=== PATIENT | male | born 1970 | race Caucasian/White ===

== ENCOUNTER 2017-11-28 09:04 | Day surgery (SDC) | payer OTHER ==
[~2017-11-28 09:04] MED LIST: Buffered Lidocaine 0.9% SYRIN* 5 ML/SYR SYRINGE INTRADERM ONE; Buffered Lidocaine 0.9% SYRIN* 5 ML/SYR SYRINGE ONE; ceFAZolin 2 GM in 100 MLS NS (*) BAG IVPB ONE
[2017-11-28] MEDS ORDERED: Midazolam* 1 MG/ML 2 ML VIAL (2 MG) ONE (10:54)
[2017-11-28] MEDS ORDERED: fentaNYL* 50 MCG/ML 2 ML VIAL (100 MCG VIAL) ONE ×2 (10:54→13:11)
[2017-11-28] MEDS ORDERED: Bupivacaine 0.5% SDV PF* 10-30ML VIAL ONE (11:31)
[2017-11-28] MEDS ORDERED: Dexamethasone IV* 4 MG/ML 1 ML (4 MG) ONE (12:13)
[2017-11-28] MEDS ORDERED: Ondansetron INJ* 2 MG/ML VIAL ONE (12:13)
[2017-11-28] MEDS ORDERED: Lidocaine 2% PF * 5 ML VIAL ONE (12:13)
[2017-11-28] MEDS ORDERED: Propofol* 10 MG/ML 20 ML BTL IV PUSH ONE (12:13)
[2017-11-28] MEDS ORDERED: HYDROmorphone INJ* 1 MG/ML CARPUJECT SYRINGE IV PRN (12:35)
[2017-11-28] MEDS ORDERED: Metoclopramide IV* 5 MG/ML 2 ML VIAL IV PRN (12:35)
[2017-11-28] MEDS ORDERED: Ketorolac INJ* 30 MG/ML 1 ML VIAL IV PRN (12:35)
[2017-11-28] MEDS ORDERED: Acetaminophen TAB* 325 MG PO PRN (12:35)
[2017-11-28] MEDS ORDERED: fentaNYL* 50 MCG/ML 2 ML VIAL (100 MCG VIAL) IV PRN (12:35)
[2017-11-28] MEDS ORDERED: Naloxone* 0.4 MG/ML 1 ML VIAL IV PRN (12:35)
[2017-11-28] MEDS ORDERED: PROCHLORPERAZINE INJ 5 MG/ML 2 ML VIAL IV PRN (12:35)
[2017-11-28] MEDS ORDERED: EPHEDrine (Pressors)* 50 MG/ML VIAL ONE (12:37)
[2017-11-28] MEDS ORDERED: Sevoflurane* 1 BTL ONE (13:20)
[2017-11-28 15:02] VITALS: BP 111/62
--- NOTE | 2017-11-30 23:06 | OP ---
DATE OF OPERATION: 11/28/17 - SDS DATE OF : 68 SURGEON: Dr. Jacky Garcia. NURSING INFORMATICS ANALYST: BRYAN Beltre. A physician drilling assistant was required for the length of the procedure for positioning, retraction, help with instrumentation and closure. ANESTHESIOLOGIST: Dr. Kath Chow. ANESTHESIA: General anesthesia, femoral nerve block anesthesia. PRE-OP DIAGNOSIS: Left distal quadriceps tendon tear, high-grade, partial- thickness. POST-OP DIAGNOSIS: Left distal quadriceps tendon tear, high-grade, partial- thickness. OPERATIVE PROCEDURE: Open left distal quadriceps tendon repair. ANTIBIOTICS: Ancef 2 g IV. IV FLUIDS: 1300 cc crystalloid. TOURNIQUET TIME: 64 minutes at 300 mmHg. COMPLICATIONS: None. SPECIMEN: None. IMPLANTS: None except for FiberWire #5 suture from [employer]. ESTIMATED BLOOD LOSS: Minimal. 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 The patient fell while walking up some stairs at work. The patient met me in the office and clearly had a tear of his left distal quadriceps tendon given that he had a palpable defect on exam as well as tenderness in that location and no straight leg raise whatsoever. Inability to actively extend the knee and despite the pain not seeming to be a limiting factor. MRI demonstrated very high-grade partial-thickness tear of the left quadriceps tendon. The patient and I discussed at length possible treatment options. I told him that at times partial-thickness tears can be treated nonoperatively. This tends to be when they are lower grade tears and/or when straight leg raise is intact, especially once the acute pain of the injury subsides. I went over benefits and risks of surgical and nonsurgical management. The patient briefly tried physical therapy, but then decided on surgical management. The patient had briefly discussed risks and potential complications of surgery including bleeding, infection, nerve or blood vessel injury, knee pain, stiffness, tendon rerupture. DESCRIPTION OF PROCEDURE: The patient in preoperative holding signed a written consent. Operative extremity was marked in the preoperative holding. The patient was taken back to the operating room after Dr. Chow had performed a femoral nerve block. The patient was placed supine on the operating room table. The patient was sedated and intubated. A proximal thigh tourniquet was placed about the left lower extremity. The left lower extremity was prepped with Chlora-Prep and then draped. Surgical time-out was performed. Esmarch was applied and tourniquet was elevated to 300 mmHg. The knee was flexed to approximately 70 degrees. Skin incision, anterior midline longitudinal was made. Knife was changed and dissection was continued down to the extensor mechanism. The knee was extended. The superficial most layer of quadriceps tendon was noted to be intact, as it had been appreciated preoperatively by MRI. I performed a midline longitudinal incision, splitting this top veneer of intact tendon. Below it, I encountered the central tendon, fully ruptured off of bone. I placed retractors. I prepared the bone. The naked proximal aspect of the patella was debrided of any soft tissue with a curette and rongeur. I then used a jimmy to further prepare this bone for excellent healing. I then evaluated the distal end of the quadriceps tendon. It had not retracted significantly. There was not significant tendon needed to be debrided. I removed a millimeter of fibrous tissue with a rongeur. I next placed 3 drill holes in the patella from proximal to distal using a 2.0 mm drill bit. I placed passing sutures through these drill holes with PDS 2.0 suture. I next dressed the quadriceps tendon. I placed 2 Krackow stitches in the torn central tendon. With my limb of each stitch moving from proximal to distal, I also included the more superficial layer, and intact that I had split for the exposure. I next brought the FiberWire #5 suture from the Krackow stitches through the patella. With the knee full extended, I tied knots. I next used an Ethibond [address] a running stitch, closing the anterior longitudinal split I had made in the superficial most layer of the quadriceps tendon. This brought it together nicely. I next placed some additional stitches using absorbable Vicryl 0 suture, figure- of- eight and simple stitches in the periosteum superficial to the patella so that everything, all the soft tissues closed up very nicely and aesthetically. Irrigation. I let the knee flexed with gravity. It easily flexed to 70 degrees without any injury to the repair site or retraction. Closure with the knee in approximately 20 degrees of the subcutaneous layer with buried simple stitches using Vicryl 2-0 suture. Closure of the skin with shahnaz. Xeroform, 4x4s, ABD, sterile Webril, nonsterile Webril, Juan Luis bandage from foot to proximal thigh. The tourniquet was deflated. A knee brace was applied and locked in extension. Cooling unit was applied to the knee. The patient was awakened and extubated and brought to the PACU. DISPOSITION: The patient was to return home. He will take Percocet as needed for pain control, Keflex to prevent an infection, and aspirin for 2 weeks to prevent a blood clot. The patient will follow up with me in 10 to 14 days post- operatively in clinic. He will use crutches at all times and the knee brace locked in extension at all times. The patient may bear partial weight on that left lower extremity as tolerated. This is with crutches and with the knee brace locked in extension. [id number]/[facility] #: [id number] KAROL
== END 2017-11-28 15:26 | disposition home or self-care (01) ==
LOC: OR 09:04
PROVIDERS: ATTEND Orthopaedic Surgery
DX: S76.112A Strain of left quadriceps muscle, fascia and tendon, initial encounter (principal); W10.9XXA Fall (on) (from) unspecified stairs and steps, initial encounter; Y92.214 College as the place of occurrence of the external cause; Y99.0 Civilian activity done for income or pay
CPT/HCPCS: J1100; J2250; J2405; J2704; J3010

== ENCOUNTER 2017-12-09 17:55 | Emergency (ER) | payer OTHER ==
--- OUTSIDE RECORDS SUMMARY | 2017-12-09 18:17 | XMS REPORT ---
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 Smoking Patient has never smoked Exercise Type/Frequency Exercises regularly Allergies, Adverse Reactions, Alerts Date Description Reaction Status Severity Comments 11/03/2017 NKDA active Medications Medication Date Status Form Strength Qnty SIG Indications Ordering Provider No Active 11/03/2017 Active Unknown Medications Vital Signs Date Vital Result Comment 11/11/2017 Height 71 inches 5'11" Weight 165.00 lb Heart Rate 95 /min Respiratory Rate 15 /min Body Temperature 97.2 F Pain Level 2 BMI (Body Mass Index) 23.0 kg/m2 11/03/2017 Height 71 inches 5'11" Heart Rate 76 /min Respiratory Rate 16 /min Body Temperature 98.0 F Pain Level 1 Results Description No Information Procedures Description No Information Encounters Type Date Location Provider CPT E/M Dx Office Visit 11/11/2017 [facility] Jacky Garcia, [address] S76.102D 10:45a [facility] Plan of Care Future Appointment(s):11/20/2017 1:00 pm - Jacky Garcia MD at [facility]/11/2017 - Jacky Garcia, MDS76.102D Unsp injury of left quadriceps musc/fasc/tend, subsNew Therapy:Physical TherapyFollow up:Follow up: 1 week
--- OUTSIDE RECORDS SUMMARY | 2017-12-09 18:17 | XMS REPORT ---
:1970 External Reference #:[id number] Author Organization [facility] Address [address] [address] Phone [phone] Care Team Providers Name Role Phone Patient's Choice Primary Care Physician Unavailable Payers Type Date Identification Numbers Payment Provider Subscriber Commercial Policy Number: [id number] [employer] Eric Coffman PayID: [id number] [address] [place] [address] Workers Effective: Policy Number: Meghna Reyes Compensation 2017 [id number] Kamila Coffman Onset: 2017 Group Name: [phone] Fax [address] PayID: PHILOMENA Patel [phone] Problems Description No Information Family History Date Family Member(s) Problem(s) Comments General No Current Problems Social History Type Date Description Comments 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 Oxycodone-Acet Active Tablets 5-325mg 60tabs 1-2 tabs Jacky F aminophen 018 by mouth Jose, every 4 MD hours for pain No Active Hx Unknown Medications 018 - 018 Vital Signs Date Vital Result Comment 12/08/2017 Height 71 inches 5'11" Heart Rate 94 /min BP Systolic 118 mmHg BP Diastolic 68 mmHg Respiratory Rate 16 /min Body Temperature 97.6 F Pain Level 3 11/18/2017 Height 71 inches 5'11" Heart Rate 86 /min BP Systolic 110 mmHg BP Diastolic 68 mmHg Respiratory Rate 16 /min Body Temperature 97.8 F Pain Level 2 11/11/2017 Height 71 inches 5'11" Weight 165.00 lb Heart Rate 95 /min Respiratory Rate 15 /min Body Temperature 97.2 F Pain Level 2 BMI (Body Mass Index) 23.0 kg/m2 11/03/2017 Height 71 inches 5'11" Heart Rate 76 /min Respiratory Rate 16 /min Body Temperature 98.0 F Pain Level 1 Results Description No Information Procedures Date CPT Code Description Status 11/28/2017 29481 Suture Of Quadriceps Or Hamstring Muscle Repair;Primary Completed 11/28/2017 92572 Suture Of Quadriceps Or Hamstring Muscle Repair;Primary Completed Encounters Type Date Location Provider CPT E/M Dx Office Visit 11/18/2017 [facility]y Garcia, [address] S76.102D 3:30p [facility] S76.112D Office Visit 11/11/2017 10:45a [facility]y Heath [address] S76.112D [facility] Garcia MD S76.102D Plan of Care Future Appointment(s):12/22/2017 3:15 pm - Jacky Garcia MD at [facility]/08/2017 - Jacky Garcia MDS76.102D Unsp injury of left quadriceps musc/fasc/tend, subsFollow up:Follow up: 2 weeks
--- OUTSIDE RECORDS SUMMARY | 2017-12-09 18:17 | XMS REPORT ---
:1970 External Reference #:[id number] Author Organization [facility] Address [address] [address] Phone [phone] Care Team Providers Name Role Phone Patient's Choice Primary Care Physician Unavailable Payers Type Date Identification Numbers Payment Provider Subscriber Commercial Policy Number: [id number] [employer] Eric Coffman PayID: [id number] [address] [place] [address] Workers Effective: Policy Number: Meghna Reyes Compensation 2017 [id number] Kamila Coffman Onset: 2017 Group Name: [phone] Fax [address] PayID: PHILOMENA Patel [phone] Problems Description No Information Family History Date [...] until finished . Oxycodone-Acet Active Tablets 5-325mg 42tabs 1-2 tabs Jacky F aminophen 018 by mouth Jose, every 4 MD hours for pain No Active Hx Unknown Medications 018 - 018 Vital Signs Date Vital Result Comment 12/09/2017 Height 71 inches 5'11" 12/08/2017 Height 71 inches 5'11" Heart Rate [...] Procedures Date CPT Code Description Status 11/28/2017 78286 Suture Of Quadriceps Or Hamstring Muscle Repair;Primary Completed 11/28/2017 15362 Suture Of Quadriceps Or Hamstring Muscle Repair;Primary Completed Encounters Type Date Location Provider CPT E/M Dx Office Visit 11/18/2017 [facility]y Garcia, [address] S76.102D 3:30p [facility] S76.112D Office Visit 11/11/2017 10:45a [facility] Jacky Heath [address] S76.112D [facility] Garcia MD S76.102D Plan of Care Future Appointment(s):12/22/2017 3:15 pm - Jacky Garcia MD at [facility]
[2017-12-09] MEDS ORDERED: Midazolam* 1 MG/ML 5 ML VIAL (5 MG) ONE (18:29)
[2017-12-09] MEDS ORDERED: fentaNYL* 50 MCG/ML 2 ML VIAL (100 MCG VIAL) ONE (18:30)
[2017-12-09 20:13] VITALS: BP 126/74
--- NOTE | 2017-12-09 21:15 | RAD ---
Indication: Left shoulder pain. 3 views of left shoulder demonstrates no fracture. No other bone or joint abnormality is noted. IMPRESSION: No fracture of left shoulder is noted.
--- NOTE | 2017-12-10 01:03 | CONS ---
CONSULTATION NOTE: DATE OF CONSULTATION: 12/09/17 - EMERGENCY DEPT REASON FOR CONSULTATION: Left shoulder dislocation. 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 The patient has no prior history of injury or complaint about the left shoulder. Patient states he was on some stairs. He misstepped and slipped and fell several stairs. His crutch on the left side jammed up into his left shoulder and thereafter he had significant pain and weakness about the left shoulder. The patient contacted me by text message and telephone and presented to my clinic at [facility]. In clinic, by physical exam, I made the diagnosis of left shoulder dislocation. By history and physical exam and imaging, I made the diagnosis of anterior dislocation of the left shoulder. No clear fracture. I performed an attempted closed relocation in clinic after injecting 20 cc of lidocaine into the left glenohumeral joint. This was unsuccessful. I had the patient directed to the emergency department for closed relocation under conscious sedation. I notified the ER attending physicians and they allowed me to do a consultation in the emergency department. The patient has had no numbness and tingling in left upper extremity throughout and significant left shoulder pain. PAST MEDICAL HISTORY: None. PAST SURGICAL HISTORY: None. MEDICATIONS: 1. Percocet p.r.n. 2. Tylenol p.r.n. left knee pain. ALLERGIES: No known drug allergies. SOCIAL HISTORY: Denies tobacco use. Ten glasses of alcohol per week. REVIEW OF SYSTEMS: No current nausea or vomiting. Patient has felt a little bit lightheaded because of the left shoulder pain. No chest pain or shortness of breath. No left upper extremity numbness or tingling. Patient does have some left knee discomfort, but he had stopped taking the Percocet except for occasionally at night for this pain. PHYSICAL EXAM: Vitals: In the emergency room at 6:01 p.m. are 98.7 degrees Fahrenheit, heart rate 77, blood pressure 119/69, respiratory rate 18, and O2 sat 100% on room air. No acute distress, alert and oriented, appropriate mood and affect, appropriate dress and hygiene. Patient does walk with a stiff knee as he is walking with a knee brace locked in extension on his left knee. Well coordinated bilateral upper and lower extremities. Left knee exam shows a knee brace in place. Left shoulder exam shows a concavity, scalloping of the lateral shoulder just inferior to a prominent acromion. Patient's passive range of motion is limited by pain with internal and external rotation as well as forward flexion to no more than 45 degrees without significant discomfort. Neurovascularly intact distally. No significant soft tissue swelling or bruising. Skin is intact. IMAGING: Two x-ray views obtained in clinic at [facility] Orthopedics of the left shoulder were reviewed by me, Grashey AP and axillary lateral views. They demonstrate an anteroinferior left glenohumeral dislocation. No fracture obvious of either the glenoid or the humeral head. ASSESSMENT: 1. Left glenohumeral joint dislocation, anterior, first time. 2. Status post recent left distal quadriceps tendon repair, open, November 2017. PLAN: 1. PROCEDURE: Conscious sedation performed by the emergency department staff. Closed relocation, left shoulder glenohumeral joint. Verbal consent, tolerated well. I performed standard relocation maneuver. 2. Obtained post relocation radiographs, AP, Grashey AP and scapular Y. They all demonstrate a located glenohumeral joint. No obvious fracture fragments visible. 3. Patient was provided with a sling and a shoulder immobilizer. It was left up to him which to use, whichever is most comfortable, but he should have one on at all times for the next week. 4. The patient needs to continue weightbearing as tolerated in the left lower extremity with an assist device, either a cane or crutch. He can hold this in his right hand. That left knee brace needs to be locked in extension at all times. 5. The patient's Percocet was refilled today and he can take that as needed. 6. Ice to the left shoulder for 3 days as needed. 7. The patient will follow up with me in clinic next week regarding his left shoulder and knee. [id number]/[facility] #: [id number] [facility]ITAL[facility]
--- NOTE | 2017-12-10 07:51 | ED ---
Lester Fields Thomas, scribed for Alex Naqvi MD on 12/09/17 at 1829 . Lower Extremity - HPI Summary HPI Summary: The patient is a 47 year old male referred from his primary care physician complaining of dislocation of his left shoulder due to an accidental fall while using crutches. The pain is rated 5/10. He had left knee surgery on 10/28/17. - History of Current Complaint Chief Complaint: EDExtremityUpper Stated Complaint: LEFT SHOULDER INJURY, SENT BY DR. CONTRERAS Hx Obtained From: Patient Mechanism Of Injury: Fall From A Standing Position - while using crutches Onset of Pain: Immediate Severity Currently: Moderate Pain Intensity: 5 Pain Scale Used: 0-10 Numeric Timing: Constant Location: Is Discrete @ - left shoulder Associated Signs And Symptoms: Negative: Fever Aggravating Factor(s): Movement Alleviating Factor(s): Nothing - Allergies/Home Medications Allergies/Adverse Reactions: Allergies Allergy/AdvReac Type Severity Reaction Status Date / Time No Known Allergies Allergy Verified 11/25/17 09:35 PMH/Surg Hx/FS Hx/Imm Hx Endocrine/Hematology History: Denies: Hx Diabetes Cardiovascular History: Denies: Hx Hypertension, Hx Pacemaker/ICD History: Denies: Hx Renal Disease Musculoskeletal History: Reports: Other Musculoskeletal History - left quadriceps injury - reports fell at work Sensory History: Denies: Hx Hearing Aid Psychiatric History: Denies: Hx Panic Disorder - Surgical History Surgery Procedure, Year, and Place: never had surgery Hx Anesthesia Reactions: No - never had surgery - Immunization History Immunizations Up to Date: Yes Infectious Disease History: No Infectious Disease History: Denies: Traveled Outside the [place] in Last 30 Days - Family History Known Family History: Positive: Other - Patient denies relevant FHx - Social History Alcohol Use: Weekly Alcohol Amount: one glass wine daily Substance Use Type: Reports: None Smoking Status (MU): Never Smoked Tobacco Review of Systems Negative: Fever Positive: Other - Left shoulder dislocation All Other Systems Reviewed And Are Negative: Yes Physical Exam - Summary Physical Exam Summary: VITAL SIGNS: Reviewed. GENERAL: Patient is a well-developed and nourished male who is lying comfortable in the stretcher. Patient is not in any acute respiratory distress. HEAD AND FACE: No signs of trauma. No ecchymosis, hematomas or skull depressions. No sinus tenderness. EYES: PERRLA, EOMI x 2, No injected conjunctiva, no nystagmus. EARS: Hearing grossly intact. Ear canals and tympanic membranes are within normal limits. MOUTH: Oropharynx within normal limits. NECK: Supple, trachea is midline, no adenopathy, no JVD, no carotid bruit, no c- spine tenderness, neck with full ROM. CHEST: Symmetric, no tenderness at palpation LUNGS: Clear to auscultation bilaterally. No wheezing or crackles. CVS: Regular rate and rhythm, S1 and S2 present, no murmurs or gallops appreciated. ABDOMEN: Soft, non-tender. No signs of distention. No rebound no guarding, and no masses palpated. Bowel sounds are normal. EXTREMITIES: He has a deformity to the left shoulder. There are good pulses and good capillary refill. Otherwise, FROM in all other major joints, no edema, no cyanosis or clubbing. NEURO: Alert and oriented x 3. No acute neurological deficits. Speech is normal and follows commands. SKIN: Dry and warm Triage Information Reviewed: Yes Vital Signs On Initial Exam: Initial Vitals Temp Pulse Resp BP Pulse Ox 98.7 F 77 18 119/69 100 12/09/17 18:01 12/09/17 18:01 12/09/17 18:01 12/09/17 18:01 12/09/17 18:01 Vital Signs Reviewed: Yes Diagnostics - Vital Signs Vital Signs Temp Pulse Resp BP Pulse Ox 12/09/17 18:01 98.7 F 77 18 119/69 100 - Laboratory Lab Statement: Any lab studies that have been ordered have been reviewed, and results considered in the medical decision making process. Lower Extremity Course/Dx - Course Course Of Treatment: PROCEDURE NOTE: Procedural Sedation. Indications: Shoulder dislocation. Cheyney Protocol: a timeout was performed and the correct patient and site were verified. Consent: The risks and benefits of monitored anesthesia care, including the risk of aspiration, deep sedation requiring airway management including possible intubation, nausea and vomiting and the risks of not performing the procedure, including severe pain and inability to complete the procedure, were all discussed with the patient. The alternatives of performing the procedure, including local anesthesia and IV analgesia, also discussed. The patient has a ride home available. ASA Class: II -mild systemic disease. Pre-anesthesia evaluation, including history, exam, and informed consent is documented in the ED note above. Monitoring: Continuous monitoring of heart rate, respiratory rate, pulse oximetry and ETCO2. Supplemental oxygen prior to and during procedure via nasal cannula. Resuscitation equipment available at the bedside during sedation. The patient received Versed and Fentanyl and dosages were recorded on the sedation form. The patient was recovered from the sedation without complication or incident. Patient returned to pre-sedation level of awareness. The monitoring was discontinued at this time. Post-anesthesia evaluation: Shoulder dislocation reduction. Respiratory function, cardiovascular function, temperature, and mental status did return to pre-anesthetic state. Pain is controlled. Assessment/Plan: 47 y/o male with a shoulder dislocation. Dr. Contreras reduced the dislocation. I performed the Consious sedation. No complications. Patient is aler and oriented x 3 nd will be discharged home with f/u of PMD. - Diagnoses Differential Diagnosis/HQI/PQRI: Positive: Bursitis, Cellulitis, Fracture ( Closed), Sprain, Strain Provider Diagnoses: Dislocation of left shoulder joint - Physician Notifications Discussed Care Of Patient With: Jacky Contreras Time Discussed With Above Provider: 19:03 Instructed by Provider To: Other - Dr. Contreras came to the ED to reduce the left shoulder. Discharge - Discharge Plan Condition: Stable Disposition: HOME Patient Education Materials: Shoulder Dislocation Exercises (GEN), Shoulder Dislocation (ED) Referrals: Jacky Contreras MD [Primary Care Provider] - 3 Days Additional Instructions: Follow up with Dr. Pereira in three days. Return to the emergency department for any new or worsening symptoms. The documentation as recorded by the Lester lima Thomas accurately reflects the service I personally performed and the decisions made by , Alex Naqvi MD.
== END 2017-12-09 20:11 | disposition home or self-care (01) ==
LOC: ED 17:55
DX: S43.085A Other dislocation of left shoulder joint, initial encounter (principal); W17.89XA Other fall from one level to another, initial encounter; Y92.9 Unspecified place or not applicable
CPT/HCPCS: 23650; 99282; J2250; J3010

== ENCOUNTER → 2019-03-18 09:58 | Day surgery (SDC) | payer OTHER ==
[~2019-03-18 09:58] MED LIST changes: -Buffered Lidocaine 0.9% SYRIN* 5 ML/SYR SYRINGE INTRADERM ONE; -Buffered Lidocaine 0.9% SYRIN* 5 ML/SYR SYRINGE ONE; +Buffered Lidocaine 1% SYRIN* 1 ML/SYRINGE INTRADERM ONE; +Dexamethasone IV* 4 MG/ML 1 ML (4 MG) IV SLOW PU ONE; +Dexamethasone IV* 4 MG/ML 1 ML (4 MG) ONE; +Famotidine IV* 10 MG/ML 2 ML (20 mg) IV ONE; +Famotidine IV* 10 MG/ML 2 ML (20 mg) ONE; +HYDROcodone/ACETAMIN 5-325 MG* 1 TAB PO PRN; +Lactated Ringers 1000 ML Bag* 1,000 ML IV SCH; +Lidocain 1% EPI 1:100,000 * 30 ML MDV ONE; +Lidocaine 2% PF * 5 ML VIAL ONE; +Midazolam* 1 MG/ML 5 ML VIAL (5 MG) ONE; +Naloxone* 0.4 MG/ML 1 ML VIAL IV PRN; +Ondansetron INJ* 2 MG/ML VIAL IV PRN; +Propofol* 10 MG/ML 20 ML BTL ONE; +ceFAZolin 2 GM PREMIX in ORs 2 GM/50 ML BAG ONE; -ceFAZolin 2 GM in 100 MLS NS (*) BAG IVPB ONE; +fentaNYL* 50 MCG/ML 2 ML VIAL (100 MCG VIAL) IV PRN; +fentaNYL* 50 MCG/ML 2 ML VIAL (100 MCG VIAL) ONE; +oxyCODONE/Acetamin 5/325 MG* TAB PO PRN
[2019-03-18 14:47] VITALS: BP 96/71
== END | disposition home or self-care (01) ==
LOC: OR 09:58
PROVIDERS: ATTEND Plastic Surgery
DX: C44.319 Basal cell carcinoma of skin of other parts of face (principal); Z85.828 Personal history of other malignant neoplasm of skin
CPT/HCPCS: 88305; 88331; 88332; J0690; J1100; J2250; J2704; J3010